=== PATIENT | female | born 1995 | race Caucasian/White ===

== ENCOUNTER → 2024-01-14 | Outpatient (CLI) | payer BC ==
[2024-01-14 15:24] LABS: HCT 35.5 % (37.2-46.3); HGB 11.8 g/dL (12.0-15.0); MCH 29.1 pg (27.0-32.0); MCHC 33.2 g/dL (32.0-37.0); MCV 87.4 FL (80.0-97.0); NRBC Per 100 WBC 0 X 10*3/uL (0.00-0.01); Platelet Count 180 X 10*3/uL (140-440); RBC 4.06 X 10*6/uL (4.10-5.20); RDW 13.5 % (11.5-14.5); WBC 12.71 X 10*3/uL (4.50-10.00)
== END | disposition home or self-care (01) ==
LOC: LABWHC1 10:20
PROVIDERS: ATTEND Obstetrics & Gynecology Obstetrics
DX: Z36.9 Encounter for antenatal screening, unspecified (principal)
CPT/HCPCS: 36415; 82950; 85027

== ENCOUNTER 2024-03-26 05:57 | Inpatient (IN) | payer BC ==
[2024-03-26] MEDS ORDERED: METHYLERGONOVINE 0.2 MG/ML 1 ML AMP IM PRN (06:11)
[2024-03-26] MEDS ORDERED: miSOPROStoL 200 MCG TAB RECTAL PRN (06:11)
[2024-03-26] MEDS ORDERED: OXYTOCIN 10 UNIT/ML 1 ML VIAL IM PRN (06:11)
[2024-03-26] MEDS ORDERED: TRANEXAMIC 1,000 MG/100ML-NACL 1,000 MG in EMPTY BAG 1 BAG IV PRN (06:11)
[2024-03-26] MEDS ORDERED: CARBOPROST TROMETHAMINE 250 MCG/ML 1 ML AMP IM PRN (06:11)
[2024-03-26] MEDS ORDERED: miSOPROStoL 200 MCG TAB PO PRN (06:11)
[2024-03-26] MEDS ORDERED: TERBUTALINE 1 MG/ML VIAL SQ PRN (06:11)
[2024-03-26] MEDS ORDERED: LIDOCAINE 0.5% (PF) 5 MG/ML (50 ML SDV) SQ PRN (06:11)
[2024-03-26] MEDS: LACTATED RINGERS 1,000 ML IV SCH (06:24)
[2024-03-26] MEDS: OXYTOCIN 30 UNITS/500 ML NS 30 UNIT in SALINE 1 500ML.BAG IV SCH (06:30)
[2024-03-26 06:47] LABS: Basophils % (A) 0 %; Eosinophils # (A) 0.1 k/uL (0-0.7); Eosinophils % (A) 1 %; HCT 39.5 % (34.0-46.0); HGB 12.9 gm/dL (11.4-16.0); Lymphocytes # (A) 2.5 k/uL (1.0-4.8); Lymphocytes % (A) 23 %; MCHC 32.7 g/dL (31.0-37.0); MCV 88.9 fL (80.0-100.0); Monocytes # (A) 0.5 k/uL (0-1.0); Monocytes % (A) 4 %; Neutrophils # (A) 7.6 k/uL (1.3-7.7); Neutrophils % (A) 70 %; RBC 4.45 m/uL (3.80-5.40); RDW 13.7 % (11.5-15.5); WBC 10.8 k/uL (3.8-10.6)
[2024-03-26 08:08] LABS: Large Platelets Present; Platelet Count 150 k/uL (150-450)
[2024-03-26] MEDS ORDERED: fentaNYL (PF) 50 MCG/ML 5 ML AMP ONE (10:54)
[2024-03-26] MEDS ORDERED: ROPIVACAINE 5 MG/ML 30 ML VIAL ONE (10:54)
[2024-03-26] MEDS ORDERED: SODIUM CHLORIDE 0.9% 250 ML BAG ONE (10:54)
--- NOTE | 2024-03-26 15:07 | P.PROBDLV ---
Vaginal Delivery Note - . Vaginal Delivery Note: Findings viable male delivered at 1441, weight of 8 pounds 15.6 ounces, Apgars of 9 and 9 at 1 and 5 minutes respectively. This is a 28-year-old 2 para 1 that presented to labor and delivery at 39-0/7 weeks for scheduled induction of labor. Patient did been receiving routine care which has been essentially uncomplicated. Patient was admitted and Pitocin induction of labor was begun. Patient underwent amniotomy and clear fluid was obtained. Patient made progress through labor making cervical change and requesting epidural. Epidural was placed without difficulty by the anesthesia department. Patient made good progress toward complete dilation. Once completely dilated patient began pushing had a normal spontaneous vaginal delivery of a viable male infant at 1441, weight of 8 pounds 15.6 ounces. After 2-minute delay the umbilical cord is doubly clamped and cut. Placenta was delivered spontaneously intact with a three-vessel cord being noted. On inspection of the patient's vaginal vault a second-degree midline laceration was appreciated. This was repaired in usual fashion with 3-0 Rapide. After closure hemostasis was noted. Uterus was noted to be firm and below the umbilicus. Bladder was drained for approximately 100 cc of clear yellow urine. All counts were noted be correct x 2. Patient and tolerated delivery well and are resting comfortably.
[2024-03-26] MEDS ORDERED: ACETAMINOPHEN TAB 325 MG TAB PO PRN (15:08)
[2024-03-26] MEDS ORDERED: LANOLIN CREAM 1 GM TUBE TOPICAL PRN (15:08)
[2024-03-26] MEDS ORDERED: ZOLPIDEM 5 MG TAB PO PRN (15:08)
[2024-03-26] MEDS ORDERED: HYDROCORTISONE 2.5% RECTAL CREAM 30 GM TUBE RECTAL PRN (15:08)
[2024-03-26] MEDS ORDERED: diphenhydrAMINE 25 MG CAP PO PRN (15:08)
[2024-03-26] MEDS ORDERED: diphenhydrAMINE 50 MG CAP PO PRN (15:08)
[2024-03-26] MEDS ORDERED: SIMETHICONE 80 MG CHEWABLE PO PRN (15:08)
[2024-03-26] MEDS ORDERED: diphenhydrAMINE 50 MG/ML 1 ML VIAL IVP PRN ×2 (15:08)
[2024-03-26] MEDS ORDERED: BENZOCAINE/MENTHOL SPRAY 1 GM/SPRAY AEROSOL TOPICAL PRN (15:08)
--- NOTE | 2024-03-26 15:08 | P.HPOB ---
History of Present Illness H&P Date: 03/26/24 Chief Complaint: IUP at 39 and 0/7 weeks This is a 28-year-old G2, P1 at 39-0/7 weeks that presents to labor and delivery for elective induction of labor. Patient has been receiving routine care with myself which has been essentially uncomplicated. Patient notes good movement and occasional contraction no vaginal bleeding or loss of fluid. On blood work she has a blood type of a positive, rubella status immune, hepatitis B surface engine negative, HIV negative, RPR is nonreactive, grew beta strep culture is negative. Review of Systems Constitutional: Denies chills, Denies fatigue, Denies fever Ears, nose, mouth and throat: Denies headache Cardiovascular: Reports leg edema Respiratory: Denies dyspnea Gastrointestinal: Denies constipation, Denies diarrhea Genitourinary: Reports Past Medical History Past Medical History: No Reported History History of Any Multi-Drug Resistant Organisms: None Reported Past Surgical History: No Surgical Hx Reported Past Anesthesia/Blood Transfusion Reactions: No Reported Reaction Past Psychological History: No Psychological Hx Reported Smoking Status: Never smoker Past Drug Use History: None Reported Medications and Allergies Home Medications Medication Instructions Recorded Confirmed Type Vit No.179/Iron/Folic 03/26/24 History [ Tablet] Allergies Allergy/AdvReac Type Severity Reaction Status Date / Time No Known Allergies Allergy Verified 03/26/24 06:11 Exam Osteopathic Statement: *. No significant issues noted on an osteopathic structural exam other than those noted in the History and Physical/Consult. Intake and Output 03/25/24 03/26/24 03/26/24 22:59 06:59 14:59 Other: Weight 89.811 kg Targeted physical exam is performed this date General Is well-nourished well- developed female in no acute distress, breathing is nonlabored, heart has a regular and rhythm, abdomen is gravid, on cervical exam she is 4/60/-2 station amniotomy was performed and clear fluid is obtained. heart tones noted be category 1 and she is latoya every 2 to 3 minutes. Results Result Diagrams: 03/26/24 06:23 Abnormal Lab Results - Last 24 Hours (Table) 03/26/24 Range/Units 06:23 WBC 10.8 H (3.8-10.6) k/uL Assessment and Plan (1) Term Current Visit: Yes Status: Acute Code(s): Z34.90 - ENCNTR FOR SUPRVSN OF NORMAL , UNSP, UNSP TRIMESTER SNOMED Code(s): 27464500 Plan: 28-year-old G2, P1 at 39-0/7 weeks that presents to labor and delivery for elective induction of labor. Pitocin induction of labor was begun per hospital protocol. Patient does desire epidural when appropriate. Anticipate spontaneous vaginal delivery.
[2024-03-26] MEDS: ROPIVACAINE 225 MG, fentaNYL (PF). 450 MCG in SODIUM CHLORIDE 0.9% 171 ML EPIDURAL ONE (16:34)
[2024-03-26] MEDS: IBUPROFEN 600 MG TAB PO SCH (22:42)
[2024-03-26] MEDS: SENNOSIDES-DOCUSATE SODIUM 1 EACH TAB PO SCH (22:42)
[2024-03-27 08:52] VITALS: BP 140/83; PULSE 77; RESP 16; TEMP 97.7
--- NOTE | 2024-03-27 10:16 | P.DS ---
Providers Date of admission: 03/26/24 05:57 Expected date of discharge: 03/27/24 Attending physician: Tequila Marie Primary care physician: Stated None - Discharge Diagnosis(es) (1) Term Current Visit: Yes Status: Acute (2) Normal spontaneous vaginal delivery Current Visit: Yes Status: Acute (3) Obstetrical laceration Current Visit: Yes Status: Acute Hospital Course: 28-year-old 2 now para 2 that presented to labor and delivery on 03/26 for scheduled induction of labor. Patient had been receiving routine care which had been essentially uncomplicated. For full details on the patient please see the dictated history and physical. Patient was admitted to labor and delivery and Pitocin induction of labor was begun. Patient underwent amniotomy and clear fluid was obtained. Patient progressed to complete and had a normal spontaneous vaginal delivery of a viable male at 1441, weight of 8 pounds 15.6 ounces, Apgars of 9 and 9 at 1 and 5 minutes respectively. Patient did francesco tain a second-degree midline laceration during delivery. This was repaired in the usual fashion with 3-0 Rapide. Patient's course has been uneventful. On this day #1 she is ambulating and voiding without difficulty. She is tolerating a regular diet without nausea or vomiting. She states her pain is well-controlled. She would like discharge home at 24 hours of possible. Patient Condition at Discharge: Good Plan - Discharge Summary New Discharge Prescriptions: No Action Vit No.179/Iron/Folic [ Tablet] Discharge Medication List Vit No.179/Iron/Folic [ Tablet] 03/26/24 [History] Follow up Appointment(s)/Referral(s): Tequila Marie DO [Doctor of Osteopathic Medicine] - 6 Weeks Patient Instructions/Handouts: Vaginal Delivery (GEN), Vaginal Delivery (DC) Activity/Diet/Wound Care/Special Instructions: No tub baths or intercourse until 6 weeks . [id number] ibuprofen 600 mg or 3 tablets every 6 hours as needed for pain. Discharge Disposition: HOME SELF-CARE
== END 2024-03-27 16:48 | disposition home or self-care (01) | DRG 807 ==
LOC: 4FBP 05:57
PROVIDERS: ADMIT Obstetrics & Gynecology Obstetrics; ATTEND Obstetrics & Gynecology Obstetrics
PROC: 10E0XZZ Delivery of Products of Conception, External Approach (ICD-10-PCS; principal; 2024-03-26)
PROC: 0KQM0ZZ Repair Perineum Muscle, Open Approach (ICD-10-PCS; principal; 2024-03-26)
DX: O70.1 Second degree perineal laceration during delivery (principal); Z37.0 Single live birth; Z3A.39 39 weeks gestation of pregnancy
CPT/HCPCS: 85025; 86850; 86900; 86901